=== PATIENT | male | born 1930 | race Asian ===

== ENCOUNTER 2017-09-01 09:55 | Observation (INO) | payer MEDICARE, OTHER ==
[~2017-09-01] VITALS: Ht 182.9 cm; Wt 65.9 kg
[~2017-09-01 09:55] MED LIST: ALIS150T PO; AMLO10; AMLO10 PO; AMLO5 PO; ASPI81CH PO; ASPI81EC; ASPI81EC PO; CAPHYD PO; CHOL10002 PO; CLON.1 PO; CLOP75 PO; Calcium 600 +1 EAC1 PO; Cardura2 MG PO; DOCU100 PO; DOXA2 PO; DOXA4 PO; FURO40 PO; Ferrex 150 For1 EACH PO; Ferus150 MG PO; GLIP5 PO; GLYB5; GLYB5 PO; HYDCHL25 PO; HYDRA25 PO; IRBHYD300; IRON150C PO; Isosorbide Mono60 MG PO; LOSA50 PO; LOVA40; LOVA40 PO; Lo-Dose Aspirin81 MG PO; METF500; METO2.5 PO; METO50 PO; Multiple Vitam1 EAC1 PO; OCUVITE ADULT1 EACH PO; OCUVITE EYE +1 EACH PO; OMEGA 3-6-9 11200 MG PO; OMEP20ER PO; ONDA4ODT MM; PIOG15; POLY500 PO; TEKTURNA; TRAM50 PO; VALS80 PO; Vitamin B-121000 MCG PO
[2017-09-01] MEDS ORDERED: DOXA2 PO (10:32)
[2017-09-01] MEDS ORDERED: CLON.1 PO (10:32)
[2017-09-01] MEDS ORDERED: AMLO5 PO (10:32)
[2017-09-01] MEDS ORDERED: FURO40 PO (10:33)
[2017-09-01 10:40] LABS: BASOPHILS PERCENT AUTO 0 % (0-2); EOSINOPHILS ABSOLUTE AUTO 0.01 K/mm3 (0.00-0.68); EOSINOPHILS PERCENT AUTO 0 % (0-6); Hematocrit 31.9 % (37.0-53.0); Hemoglobin 10.4 g/dL (13.5-17.5); IMMATURE GRAN ABSOLUTE AUTO 0.02 K/mm3 (0.00-0.10); IMMATURE GRAN PERCENT AUTO 0 % (0-1); LYMPHOCYTES ABSOLUTE AUTO 0.57 K/mm3 (0.84-5.20); LYMPHOCYTES PERCENT AUTO 6 % (21-46); MONOCYTES ABSOLUTE AUTO 0.26 K/mm3 (0.16-1.47); MONOCYTES PERCENT AUTO 3 % (4-13); Mean Corpuscular HGB 29.8 pg (26.0-34.0); Mean Corpuscular HGB Conc 32.6 g/dL (31.5-36.5); Mean Corpuscular Volume 91 fL (80-100); Mean Platelet Volume 10.4 fL (9.1-12.4); NEUTROPHILS ABSOLUTE AUTO 8.12 K/mm3 (1.96-9.15); NEUTROPHILS PERCENT AUTO 91 % (41-73); Platelet Count 187 K/mm3 (150-400); RDW Coefficient Variation 17.7 % (11.7-14.2); RDW Standard Deviation 57.7 fL (35.1-46.3); Red Blood Cell Count 3.49 M/mm3 (4.30-5.90); White Blood Cell Count 8.98 K/mm3 (4.00-11.30)
[2017-09-01 11:02] LABS: Albumin, Blood 3.7 g/dL (3.4-5.0); Bilirubin, Total 1.2 mg/dL (0.1-1.0); Calcium, Blood 9.1 mg/dL (8.5-10.1); Creatinine, Blood 3.48 mg/dL (0.60-1.20); Globulin, Blood 3.7 g/dL (2.2-4.0); Potassium, Blood 4.4 mmol/L (3.5-5.5); Total Protein, Blood 7.4 g/dL (6.4-8.2); Troponin I 0.3 ng/mL (0.000-0.040)
[2017-09-02 05:37] LABS: BASOPHILS PERCENT AUTO 0 % (0-2); EOSINOPHILS PERCENT AUTO 0 % (0-6); Hematocrit 28.7 % (37.0-53.0); Hemoglobin 9.4 g/dL (13.5-17.5); IMMATURE GRAN ABSOLUTE AUTO 0.01 K/mm3 (0.00-0.10); IMMATURE GRAN PERCENT AUTO 0 % (0-1); LYMPHOCYTES ABSOLUTE AUTO 0.42 K/mm3 (0.84-5.20); LYMPHOCYTES PERCENT AUTO 7 % (21-46); MONOCYTES PERCENT AUTO 8 % (4-13); Mean Corpuscular HGB 29.8 pg (26.0-34.0); Mean Corpuscular HGB Conc 32.8 g/dL (31.5-36.5); Mean Corpuscular Volume 91 fL (80-100); Mean Platelet Volume 10.6 fL (9.1-12.4); NEUTROPHILS ABSOLUTE AUTO 5.39 K/mm3 (1.96-9.15); NEUTROPHILS PERCENT AUTO 85 % (41-73); Platelet Count 157 K/mm3 (150-400); RDW Coefficient Variation 17.8 % (11.7-14.2); RDW Standard Deviation 58.6 fL (35.1-46.3); Red Blood Cell Count 3.15 M/mm3 (4.30-5.90); White Blood Cell Count 6.32 K/mm3 (4.00-11.30)
[2017-09-02 06:08] LABS: Albumin, Blood 3.2 g/dL (3.4-5.0); Albumin/Globulin Ratio 0.9 (0.8-1.8); Bun/Creatinine Ratio 23.4 (12.0-20.0); Calcium, Blood 9.1 mg/dL (8.5-10.1); Creatinine, Blood 3.63 mg/dL (0.60-1.20); Globulin, Blood 3.5 g/dL (2.2-4.0); Potassium, Blood 4.7 mmol/L (3.5-5.5); Total Protein, Blood 6.7 g/dL (6.4-8.2)
[2017-09-02 07:21] LABS: BASOPHILS ABSOLUTE MAN 0.06 K/mm3 (0.00-0.23); BASOPHILS PERCENT MAN 1 % (0-2); EOSINOPHILS PERCENT MAN 0 % (0-6); LYMPHOCYTES PERCENT MAN 8 % (21-46); MONOCYTES ABSOLUTE MAN 0.12 K/mm3 (0.16-1.47); MONOCYTES PERCENT MAN 2 % (4-13); NEUTROPHILS ABSOLUTE MAN 5.62 K/mm3 (1.96-9.15); SEG NEUTROPHILS PERCENT MAN 89 % (41-73); TOTAL CELLS COUNTED 100
[2017-09-03 06:01] LABS: BASOPHILS PERCENT AUTO 0 % (0-2); EOSINOPHILS PERCENT AUTO 0 % (0-6); Hematocrit 29.1 % (37.0-53.0); Hemoglobin 9.5 g/dL (13.5-17.5); IMMATURE GRAN ABSOLUTE AUTO 0.02 K/mm3 (0.00-0.10); IMMATURE GRAN PERCENT AUTO 0 % (0-1); LYMPHOCYTES PERCENT AUTO 4 % (21-46); MONOCYTES ABSOLUTE AUTO 0.58 K/mm3 (0.16-1.47); MONOCYTES PERCENT AUTO 7 % (4-13); Mean Corpuscular HGB Conc 32.6 g/dL (31.5-36.5); Mean Corpuscular Volume 92 fL (80-100); Mean Platelet Volume 10.9 fL (9.1-12.4); NEUTROPHILS PERCENT AUTO 90 % (41-73); Platelet Count 165 K/mm3 (150-400); RDW Coefficient Variation 17.6 % (11.7-14.2); RDW Standard Deviation 58.9 fL (35.1-46.3); Red Blood Cell Count 3.17 M/mm3 (4.30-5.90)
[2017-09-03 06:21] LABS: Albumin, Blood 3.1 g/dL (3.4-5.0); Albumin/Globulin Ratio 0.9 (0.8-1.8); Bilirubin, Total 0.9 mg/dL (0.1-1.0); Bun/Creatinine Ratio 23.8 (12.0-20.0); Calcium, Blood 8.7 mg/dL (8.5-10.1); Creatinine, Blood 3.99 mg/dL (0.60-1.20); Globulin, Blood 3.4 g/dL (2.2-4.0); Potassium, Blood 4.7 mmol/L (3.5-5.5); Total Protein, Blood 6.5 g/dL (6.4-8.2)
[2017-09-03 09:37] LABS: International Normalized Ratio 1.26; Prothrombin Time Results 13.2 Sec (9.7-11.5)
[2017-09-03] MEDS ORDERED: GLIM2 PO (12:26)
[2017-09-03 16:33] LABS: pH, Body Fluid 7.7
[2017-09-03 16:34] LABS: Automated BF WBC Count 0.022 K/mm3 (0-999); Body Fluid WBC Count 22 /mm3 (0-999)
[2017-09-03 16:42] LABS: Glucose, Body Fluid 190 mg/dL; Lactate Dehydrogenase, Body Fl 68 U/L; Protein, Body Fluid 1.6 g/dL
[2017-09-03 16:51] LABS: Appearance, Body Fluid Clear (Clear); Color, Body Fluid L Yellow (None-Yellow); RBC Count, Body Fluid 22 /mm3 (0-0)
[2017-09-03 17:23] LABS: Total Cell Count, Body Fluid 100
== END 2017-09-03 18:14 | disposition home health service (06) ==
LOC: ER 09:55 → MEDS 09:56 → ER 13:16 → MEDS 13:16
PROVIDERS: Family Medicine; Psychiatry & Neurology Psychiatry
DX: I13.0 Hypertensive heart and chronic kidney disease with heart failure and stage 1 through stage 4 chronic kidney disease, or unspecified chronic kidney disease (principal); I50.43 Acute on chronic combined systolic (congestive) and diastolic (congestive) heart failure; R09.02 Hypoxemia; E11.22 Type 2 diabetes mellitus with diabetic chronic kidney disease; N18.4 Chronic kidney disease, stage 4 (severe); J90 Pleural effusion, not elsewhere classified; R62.7 Adult failure to thrive; G31.84 Mild cognitive impairment of uncertain or unknown etiology; I25.5 Ischemic cardiomyopathy; M81.0 Age-related osteoporosis without current pathological fracture; F51.04 Psychophysiologic insomnia; M19.90 Unspecified osteoarthritis, unspecified site; D50.9 Iron deficiency anemia, unspecified; K59.09 Other constipation; E78.00 Pure hypercholesterolemia, unspecified; I45.9 Conduction disorder, unspecified; Z95.0 Presence of cardiac pacemaker; Z79.82 Long term (current) use of aspirin; Z79.899 Other long term (current) drug therapy
CPT/HCPCS: 32555; 36415; 71045; 71046; 80053; 82945; 82947; 83615; 83880; 83986; 84157; 84484; 85025; 85610; 85730; 87070; 87205; 88108; 89051; 93005; 93010; 94761; 96374; 96375; 96376; 99285; G0378; J1815; J1940

== ENCOUNTER 2017-09-08 16:48 | Inpatient (IN) | payer MEDICARE, OTHER ==
[~2017-09-08] VITALS: Ht 182.9 cm; Wt 65.5 kg
[~2017-09-08 16:48] MED LIST changes: +GLIM2 PO
[2017-09-08 17:23] LABS: BASOPHILS PERCENT AUTO 0 % (0-2); EOSINOPHILS PERCENT AUTO 0 % (0-6); Hematocrit 29.3 % (37.0-53.0); Hemoglobin 9.7 g/dL (13.5-17.5); IMMATURE GRAN ABSOLUTE AUTO 0.02 K/mm3 (0.00-0.10); IMMATURE GRAN PERCENT AUTO 0 % (0-1); LYMPHOCYTES ABSOLUTE AUTO 0.18 K/mm3 (0.84-5.20); LYMPHOCYTES PERCENT AUTO 3 % (21-46); MONOCYTES ABSOLUTE AUTO 0.29 K/mm3 (0.16-1.47); MONOCYTES PERCENT AUTO 5 % (4-13); Mean Corpuscular HGB 30.4 pg (26.0-34.0); Mean Corpuscular HGB Conc 33.1 g/dL (31.5-36.5); Mean Corpuscular Volume 92 fL (80-100); Mean Platelet Volume 10.8 fL (9.1-12.4); NEUTROPHILS ABSOLUTE AUTO 5.22 K/mm3 (1.96-9.15); NEUTROPHILS PERCENT AUTO 91 % (41-73); Platelet Count 184 K/mm3 (150-400); RDW Coefficient Variation 17.5 % (11.7-14.2); RDW Standard Deviation 58.8 fL (35.1-46.3); Red Blood Cell Count 3.19 M/mm3 (4.30-5.90); White Blood Cell Count 5.71 K/mm3 (4.00-11.30)
[2017-09-08 17:38] LABS: International Normalized Ratio 1.26; Prothrombin Time Results 13.2 Sec (9.7-11.5)
[2017-09-08 17:41] LABS: Albumin, Blood 3.4 g/dL (3.4-5.0); Albumin/Globulin Ratio 0.9 (0.8-1.8); Bun/Creatinine Ratio 28.1 (12.0-20.0); Calcium, Blood 9.3 mg/dL (8.5-10.1); Creatinine, Blood 4.37 mg/dL (0.60-1.20); Globulin, Blood 3.6 g/dL (2.2-4.0); Potassium, Blood 5.1 mmol/L (3.5-5.5); Troponin I 0.139 ng/mL (0.000-0.040)
[2017-09-09 05:06] LABS: BASOPHILS ABSOLUTE AUTO 0.01 K/mm3 (0.00-0.23); BASOPHILS PERCENT AUTO 0 % (0-2); EOSINOPHILS PERCENT AUTO 0 % (0-6); Hematocrit 28.3 % (37.0-53.0); Hemoglobin 9.4 g/dL (13.5-17.5); IMMATURE GRAN ABSOLUTE AUTO 0.01 K/mm3 (0.00-0.10); IMMATURE GRAN PERCENT AUTO 0 % (0-1); LYMPHOCYTES ABSOLUTE AUTO 0.33 K/mm3 (0.84-5.20); LYMPHOCYTES PERCENT AUTO 7 % (21-46); MONOCYTES ABSOLUTE AUTO 0.22 K/mm3 (0.16-1.47); MONOCYTES PERCENT AUTO 5 % (4-13); Mean Corpuscular HGB 29.8 pg (26.0-34.0); Mean Corpuscular HGB Conc 33.2 g/dL (31.5-36.5); Mean Corpuscular Volume 90 fL (80-100); Mean Platelet Volume 11.3 fL (9.1-12.4); NEUTROPHILS ABSOLUTE AUTO 4.02 K/mm3 (1.96-9.15); NEUTROPHILS PERCENT AUTO 88 % (41-73); Platelet Count 171 K/mm3 (150-400); RDW Coefficient Variation 17.5 % (11.7-14.2); RDW Standard Deviation 56.9 fL (35.1-46.3); Red Blood Cell Count 3.15 M/mm3 (4.30-5.90); White Blood Cell Count 4.59 K/mm3 (4.00-11.30)
[2017-09-09 05:28] LABS: Albumin, Blood 3.2 g/dL (3.4-5.0); Bilirubin, Total 0.9 mg/dL (0.1-1.0); Bun/Creatinine Ratio 27.7 (12.0-20.0); Calcium, Blood 8.8 mg/dL (8.5-10.1); Creatinine, Blood 4.33 mg/dL (0.60-1.20); Globulin, Blood 3.1 g/dL (2.2-4.0); Potassium, Blood 4.7 mmol/L (3.5-5.5); Total Protein, Blood 6.3 g/dL (6.4-8.2); Troponin I 0.138 ng/mL (0.000-0.040)
[2017-09-11] MEDS ORDERED: AMLO5 PO (11:23)
[2017-09-11] MEDS ORDERED: MORP20L PO (11:32)
== END 2017-09-11 11:50 | disposition hospice, home (50) | DRG 291 ==
LOC: ER 16:48 → MEDS 18:36
PROVIDERS: Emergency Medicine; Internal Medicine
DX: I13.0 Hypertensive heart and chronic kidney disease with heart failure and stage 1 through stage 4 chronic kidney disease, or unspecified chronic kidney disease (principal); I50.43 Acute on chronic combined systolic (congestive) and diastolic (congestive) heart failure; E11.22 Type 2 diabetes mellitus with diabetic chronic kidney disease; N18.4 Chronic kidney disease, stage 4 (severe); N17.9 Acute kidney failure, unspecified; I25.5 Ischemic cardiomyopathy; D63.1 Anemia in chronic kidney disease; I50.84 End stage heart failure; M81.0 Age-related osteoporosis without current pathological fracture; Z66 Do not resuscitate; Z51.5 Encounter for palliative care; Z95.0 Presence of cardiac pacemaker; Z85.038 Personal history of other malignant neoplasm of large intestine; Z79.84 Long term (current) use of oral hypoglycemic drugs; Z79.82 Long term (current) use of aspirin; Z79.899 Other long term (current) drug therapy
CPT/HCPCS: 36415; 71046; 71250; 80053; 82947; 83880; 84484; 85025; 85610; 93005; 93010; 94762; 99285; C9113; J1644; J1940